=== PATIENT | female | born 2005 | race Two or more races ===

== ENCOUNTER → 2025-05-30 | Outpatient (CLI) | payer BC, SELFPAY ==
[2025-05-30 14:31] LABS: Basophils # (Auto) 0.0 Thou/mm3 (0.0-0.2); Basophils % (Auto) 1 % (0-2.5); Eosinophils # (Auto) 0.1 Thou/mm3 (0.0-0.5); Eosinophils % (Auto) 2 % (0-10); Hematocrit 43.5 % (36.0-46.0); Hemoglobin 14.2 g/dL (12.0-16.0); Immature Granulocytes Auto 0.02 Thou/mm3 (0.00-0.00); Lymphocytes # (Auto) 2.5 Thou/mm3 (1.0-4.8); Lymphocytes % (Auto) 38 % (10-50); Mean Corpuscular HGB Conc 32.6 g/dl (31.0-37.0); Mean Corpuscular Hemoglobin 29.3 pg (25.0-35.0); Mean Corpuscular Volume 90 fL (80-100); Monocytes # (Auto) 0.3 Thou/mm3 (0.0-0.8); Monocytes % (Auto) 4 % (0-12); Neutrophils # (Auto) 3.6 Thou/mm3 (1.8-7.7); Neutrophils % (Auto) 55 % (37-80); Nucleated Red Blood Cell # 0.00 Thou/mm3 (0.00-0.00); Nucleated Red Blood Cell % 0 /100 WBC (0); Platelet Count 200 Thou/mm3 (140-440); RDW Standard Deviation 40.2 fL (36.4-46.3); Red Blood Count 4.84 Miln/mm3 (4.00-5.20); White Blood Count 6.5 Thou/mm3 (3.6-11.0)
[2025-05-30 14:48] LABS: Alanine Aminotransferase 25 U/L (10-49); Albumin, Serum 4.9 gm/dL (3.5-5.0); Albumin/Globulin Ratio 2.7 (1.2-2.2); Alkaline Phosphatase 63 U/L (46-116); Anion Gap 9 (7-16); Aspartate Amino Transferase 19 U/L (0-34); BUN/Creatinine Ratio 17 Ratio (12-20); Bilirubin,Total 0.5 mg/dL (0.3-1.2); Blood Urea Nitrogen 15 mg/dL (9-23); Calcium 10.3 mg/dL (8.3-10.6); Calcium (Corrected) 10.3 mg/dL (8.5-10.1); Carbon Dioxide 27.5 mMol/L (20.0-31.0); Cardiac Risk Estimate 4.5 RATIO (3.7-5.6); Chloride 105 mMol/L (98-107); Cholesterol 179 mg/dL (132-200); Creatinine (Component) 0.9 mg/dL (0.6-1.3); Globulin 1.8 gm/dL (2.3-3.5); Glucose 94 mg/dL (74-106); HDL Cholesterol 40 mg/dL (40-60); LDL Cholesterol,Calculated 99 mg/dL (0-130); Osmolality,Calculated 282 (275-295); Potassium 4.5 mMol/L (3.4-5.1); Sodium 141 mMol/L (136-145); Total Protein 6.7 gm/dL (5.7-8.2); Triglycerides 202 mg/dL (30-150); eGFR > 60 See Note
[2025-05-30 14:53] LABS: Follicle Stimulating Hormone 7.64 mIU/mL (See Note)
[2025-06-09 07:08] LABS: Estrogen, Total, Serum* 131 pg/mL; Insulin* 23.3 uIU/mL (< OR = 18.4); Luteinizing Hormone* 7.7 mIU/mL; Progesterone,LC/MS* <0.1 ng/mL; Prolactin* 11.2 ng/mL; Testosterone, Free,Dialysis 6.1 pg/mL (0.1-6.4); Testosterone, Total, Dialysis 36 ng/dL (2-45)
== END | disposition home or self-care (01) ==
LOC: COPL 13:07
PROVIDERS: PCP Family Medicine; Referring Provider Nurse Practitioner Family; Visit Provider Nurse Practitioner Family
DX: Z13.220 Encounter for screening for lipoid disorders (principal); Z84.2 Family history of other diseases of the genitourinary system
CPT/HCPCS: 36415; 80053; 80061; 82672; 83001; 83002; 83525; 84144; 84146; 84402; 84403; 85025

== ENCOUNTER → 2025-08-11 | Outpatient (CLI) | payer BC, SELFPAY ==
--- NOTE | 2025-08-11 12:30 | XR_ITS ---
Examination: Transvaginal ultrasound of the pelvis, complete Technique: Transvaginal sonographic images pelvis performed using sylvester scale imaging Exam date and time: August 11, 2025, 1346 hours INDICATIONS: Pelvic pain several months FINDINGS: Uterus 6.8 cm intrauterine device satisfactory position No uterine mass Right ovary 3.4 cm arterial flow small follicles, the largest 10 mm, minimal free fluid adjacent to the right ovary Left ovary 3.6 cm arterial flow small follicles, the largest 8 mm. IMPRESSION: Multiple small ovarian follicles Minimal free fluid adjacent to the right ovary
--- NOTE | 2025-08-11 12:30 | XR_ITS ---
Examination: Pelvic ultrasound, transabdominal, complete Technique: Transabdominal ultrasound of the pelvis performed using grayscale imaging Date and time of exam: August 11, 2025, 1336 hours INDICATIONS: Clinical diagnosis of PCOS excessive facial growth of hair FINDINGS: Uterus 7.3 cm intrauterine device satisfactory position no uterine mass Right ovary 4.2 cm arterial flow small follicles Left ovary 3.9 cm arterial flow small follicles IMPRESSION: Negative study
== END | disposition home or self-care (01) ==
LOC: CDIM 12:43
PROVIDERS: PCP Nurse Practitioner Family; Referring Provider Nurse Practitioner Family; Visit Provider Nurse Practitioner Family
DX: N83.8 Other noninflammatory disorders of ovary, fallopian tube and broad ligament (principal)
CPT/HCPCS: 76830; 76856